=== PATIENT | female | born 1985 | race Caucasian/White ===

== ENCOUNTER 2024-07-23 11:06 | Outpatient (AMB) | payer OTHER, SELFPAY ==
--- NOTE | 2024-07-23 11:09 | MHC.OFFVIS ---
Vital Signs 07/23/24 11:27 Height 5 ft 10 in Weight 169 lb 12.095 oz BMI 24.4 BP 108/65 Blood Pressure Location Lt brachial Position Sitting Pulse 72 Intake Visit Reasons: consult gastric distress Intake Note: Yari presents in the office as a consult for Gastric Distress. CC: She states that many months ago when this appt was first made she was having anxious about food and having severe diarrhea. Issues with cramping in her stomach, mucus in the stool. She states that it has been better for a long time and this was about 8 months ago. Allergies Seasonal Allergies Allergy (Mild, Verified 07/23/24 11:25) unknown HPI HPI consult gastric distress: Details: 39-year-old female here for initial consultation/evaluation of ?gastric distress. ? She is referred by [facility]. PMX Graves disease in remission Migraines Multiple sclerosis Herpes simplex Ovarian cysts Depression with anxiety (on magnesium oxide) Constipation Rosacea PVC's * SURGICAL HISTORY Axillary lymph node biopsy * ALLERGIES : NKDA * [employer] LABS: None in our system TODAY'S VISIT She wants me to wear a mask. In October or September she slowly over time developed loose stools and stomach cramps. She saw her PCP, but it improved with cutting out a lot of food. She had a moving sensation and borborygmus. she had some orange mucus in her stools one time. She admits to being very anxious and was not eating well and she lost a lot of weight. She was becoming afraid of foods. She tried FODMAP, gluten free, no sugar etc.... She did see a psychiatrist. She then became constipated. She admits that she had become quite obsessed with her BM and in any changes. She seems to have a great deal of health anxiety and she herself says ?I was almost crazy with this. ? She is a vegan and always has been. She will have HB that she can make happen with her anxiety. Her menses stopped because she lost so much weight rapidly, going from 180# to about 154#. She noted changes in her nails, etc. She gets summer sickness in that with the heat she gets very ill like I can't breath, : and she has not energy and dizziness. Apparently this is of unclear etiology. This was quite a long appointment as I gently discussed many of her concerns. For 1 thing I explained how the FODMAP diet as close to work in that no one can avoid all of those foods for other and have a healthy diet that they are supposed to add them back in 1 at a time to find out what the real culprits are. She seems to have done this on her own discovering that mostly onions garlic and sometimes chocolate or what most trigger her symptoms. I also discussed the fact that anxiety and the hormonal and normal signals that come from this can vary greatly affect the gut and sometimes cause these symptoms as well. It is also entirely possible she had a passing infection such as norovirus or even food poisoning that is resolving on its own. I suggest that we get a food allergy panel since she does have a history of gluten intolerance and shrimp allergy in her mother. I also think an ultrasound of the gallbladder given the rapid weight loss would be prudent. I am also just getting a general CBC and Chem panel to see if there is any other big concerns. She is agreeable to all of this, which I have made sure of because I do not want to overwhelm her with medical tests. She admits that the more she thinks about a symptom the worse it seems to get. I did reassure her that now that we have established contact I will be here she has a another severe exacerbation. ROV 8 weeks. Review of Systems Const Denies fatigue, Denies fever(s), Denies night sweats, Denies poor appetite and Reports weight loss (About 30 lb) ENT Reports Normal hearing present, Denies dental pain, Denies dysphagia, Denies hearing loss, Denies mouth pain, Denies odynophagia, Denies throat swelling, Denies tongue swelling and Reports other (Dentition adequate) Card Reports no additional complaints Resp Reports no additional complaints GI Details: Denies abdominal pain, Denies melena, Reports bloating, Denies hematochezia, Denies constipation, Denies GI cramping, Denies dysphagia, Denies excessive flatus, Denies early satiety, Reports heartburn, Denies diarrhea, Reports loose stools, Denies nausea, Denies odynophagia, Denies vomiting and Denies hematemesis Skin/Breast Denies pruritus, Denies lesions, Denies rash and Denies jaundice Neuro Reports Normal hearing present and Denies Abnormal speech present Psych Reports anxiety, Reports change in appetite, Denies homicidal ideation and Denies suicidal ideation Endo Denies fatigue Aller/Immun Denies throat swelling and Denies tongue swelling Physical Exam Vital Signs: Last Vital Signs Pulse 72 07/23/24 11:27 BP 108/65 07/23/24 11:27 BMI result Body Mass Index 24.4 Const General: cooperative, no acute distress, well developed and well groomed Nutritional Appearance: well nourished and overweight Orientation/consciousness: oriented to person, oriented to place and oriented to time Limitations: No language barrier HEENT Head: Yes normocephalic and Yes atraumatic Eyes General: appearance normal, both eyes and all related structures Pupils: Equal, round and reactive pupils present Neck Neck: Yes normal visual inspection and Yes no lymphadenopathy Thyroid: Thyroid normal Resp Effort & Inspection: normal respiratory effort and able to speak in complete sentences Auscultation: clear to auscultation bilaterally Cardio Rate: regular rate Rhythm: regular rhythm Heart sounds: Normal, physiologic split S2 sound present Peripheral pulses: radial pulses present and posterior tibial pulses present GI Inspection: No distended and No Abdominal panniculus present Palpation (GI): Soft to palpation, nontender, no guarding, not rigid and No hepatosplenomegaly present Percussion: Yes normal to percussion Auscultation: normal bowel sounds Rectal Exam - Female: deferred Skin General skin exam: no rashes or lesions noted, turgor normal, skin not dry, no jaundice, No spider nevi and no striae Rashes: no rashes Nails: normal Neuro General: oriented to person, oriented to place and oriented to time Cranial nerves: Yes Equal, round and reactive pupils present and Yes Normal hearing present Speech: No Abnormal speech present Extrem General: Yes normal to inspection, No clubbing, No cyanosis and No edema Psych Appearance: grossly normal and well kempt Mental Status: mental status grossly normal Speech and movement: Normal speech and movement present Affect: Anxious affect present Attitude: cooperative Thought process: not confabulating and Perseverating thought process present Thought content: Normal thought content present Insight: Limited insight present (Psych) Judgement: Limited judgement present (Psych) Assessment & Plan Assessment & Plan (1) IBS (irritable bowel syndrome): Code(s): K58.9 - Irritable bowel syndrome, unspecified Category: Medical Plan She wants me to wear a mask. In October or September she slowly over time developed loose stools and stomach cramps. She saw her PCP, but it improved with cutting out a lot of food. She had a moving sensation and borborygmus. she had some orange mucus in her stools one time. She admits to being very anxious and was not eating well and she lost a lot of weight. She was becoming afraid of foods. She tried FODMAP, gluten free, no sugar etc.... She did see a psychiatrist. She then became constipated. She admits that she had become quite obsessed with her BM and in any changes. She seems to have a great deal of health anxiety and she herself says ?I was almost crazy with this. ? She is a vegan and always has been. She will have HB that she can make happen with her anxiety. Her menses stopped because she lost so much weight rapidly, going from 180# to about 154#. She noted changes in her nails, etc. She gets summer sickness in that with the heat she gets very ill like I can't breath, : and she has not energy and dizziness. Apparently this is of unclear etiology. This was quite a long appointment as I gently discussed many of her concerns. For 1 thing I explained how the FODMAP diet as close to work in that no one can avoid all of those foods for other and have a healthy diet that they are supposed to add them back in 1 at a time to find out what the real culprits are. She seems to have done this on her own discovering that mostly onions garlic and sometimes chocolate or what most trigger her symptoms. I also discussed the fact that anxiety and the hormonal and normal signals that come from this can vary greatly affect the gut and sometimes cause these symptoms as well. It is also entirely possible she had a passing infection such as norovirus or even food poisoning that is resolving on its own. I suggest that we get a food allergy panel since she does have a history of gluten intolerance and shrimp allergy in her mother. I also think an ultrasound of the gallbladder given the rapid weight loss would be prudent. I am also just getting a general CBC and Chem panel to see if there is any other big concerns. She is agreeable to all of this, which I have made sure of because I do not want to overwhelm her with medical tests. She admits that the more she thinks about a symptom the worse it seems to get. I did reassure her that now that we have established contact I will be here she has a another severe exacerbation. ROV 8 weeks. Orders: Orders Comprehensive Met. Panel Today K58.9 - Irritable bowel syndrome, unspecified US abdomen complete Today K58.9 - Irritable bowel syndrome, unspecified Complete Blood Count Auto Diff Today K58.9 - Irritable bowel syndrome, unspecified Rast Allergen Today K58.9 - Irritable bowel syndrome, unspecified Coding Level of Care Code New Pt Level 3 (67084) Diagnoses IBS (irritable bowel syndrome) K58.9
[2024-07-23 11:27] VITALS: BP 108/65; PULSE 72; BMI 24.4
--- OUTSIDE RECORDS SUMMARY | 2024-07-23 13:11 | XMS_ITS | Referral Summary ---
Author Organization [facility] Address [address] [place] [address] Care Team Providers Care Language Interpreter Name Role Phone Anastasia Dunham MD Primary Care Provider [phone] Allergies No known active allergies Medications calcium carbonate (TUMS) 200 mg calcium (500 mg) chewable tablet Chew and swallow 1 tablet by mouth. Active nystatin ointment Apply topically to the affected area 2 times daily as needed. 1 Active VITAMIN B COMPLEX ORAL Take 1 tablet by mouth daily. Active cholecalciferol (VITAMIN D3) 1,000 unit tablet Take 5,000 Units by mouth daily. Active mupirocin (BACTROBAN) 2% ointmentIndicat ions:Neoplasm of uncertain behavior Apply to the right 3rd toe daily x 7 days 30 g 1 3 Active ketoconazole (NIZORAL) 2% creamIndication s:Tinea pedis of both feet Apply topically to the affected area(s) between the toes once daily until resolves for up to one year. Please provide one month supply. 60 g 11 3 Active Hospital, Clinic, or Other Facility Administered Medication Ordered Dose Route Frequency Start Date End Date Status lidocaine PF (XYLOCAINE) 1% (10 mg/mL) injection 20 mg 20 mg injection Once 06/04/2022 Active Active Problems Problem Noted Date Diagnosed Date Amenorrhea 07/24/2019 Overview (03/15/2021): Last Assessment & Plan: Has not yet missed 3 months (would be due soon). Reassurance provided that this can be a normal body response to weight loss and times of stress. Encouraged to maintain normal lifestyle, normal eating habits, and avoid excessive worry. Reviewed HPO axis physiology and time to reset. Reviewed when to call back and could consider progesterone challenge. We will check in in a month about this as it is very concerning to her. PVCs (premature ventricular contractions) 2019 Overview (03/15/2021): Pt reported history of PVCs/palpitations Last Assessment & Plan: Has found magnesium helpful with these symptoms in the past. Currently on a lower dose (400mg instead of 500mg) and noticing more palpitations. Reviewed safe max daily dosing of 800 mg PO, typically split BID, potential side effects of excessive magnesium. Dyspepsia 05/25/2019 BAO positive 03/09/2019 Overview (03/15/2021): Last Assessment & Plan: Balance rest and activity. Sleep hygiene. Well-balanced nutritionally diet. Proper hydration. Follow age-appropriate screenings and preventive strategies. Daily sun protection all year round. Joint protection, energy conservation. Avoid falls, injuries, overuse. Topical cream such as Biofreeze, Arnica, Aspercreme 2-3 times daily and if necessary at bedtime to most painful area x 3 weeks. If not better or worse may consider hand therapy. Gastroesophageal reflux disease without esophagi tis 03/09/2019 Overview (03/15/2021): Last Assessment & Plan: Much improved since last visit. Doing well off intensive daily PPI. Mouth sores 03/09/2019 Overview (03/15/2021): Last Assessment & Plan: Take lysine 500 mg twice daily to reduce the frequency. Avoid acidic and spicy food. Proper hydration. Diligent mouth hygiene. Vulvar itching 02/20/2019 Overview (03/15/2021): Last Assessment & Plan: Occasionally has itching after wearing a swimsuit or being in gym clothes. Uses Nystatin ointment with good relief Requesting refill today - Rx sent Graves disease 09/03/2018 Overview (03/15/2021): Dx carri Took symptomatic beta leeroy treatment and then it started to go away on its own Last Assessment & Plan: Due for TSH Pain of right hand 09/03/2018 Raynaud's disease without gangrene 09/03/2018 Overview (03/15/2021): Last Assessment & Plan: Keep warm, dress in layers. Optimize stress management strategies. Avoid vasoconstrictors in OTC products for cold/flu and sinus. Vitamin D insufficiency 09/03/2018 Overview (03/15/2021): Last Assessment & Plan: Although she is taking a high daily dose of Vit D, here levels last year (on this same dose) were wnl. We reviewed risks of excess Vit D- namely hypercalcemia- of which she has no symptoms. Ok to maintain current dose. We will check levels when it is safe to do so or she begins to have symptoms of elevated calcium. These labs have been ordered. Depression with anxiety 05/14/2017 Overview (03/15/2021): Improved with going on work leave April 2017. She has a therapist Last Assessment & Plan: Overall feeling at her baseline now. Continues to see therapist. Coping with the anxieties around Covid-19 as well as can be expected. Multiple sclerosis 05/14/2017 Overview (03/15/2021): Dx by Dr Adams at [facility], . MRIs correlate the lesions. Last Assessment & Plan: Encouraged to think about discussing diagnosis and questions around symptoms that are migraine-related vs MS-related vs auto-immune Social History Tobacco Use Types Packs/Day Years Used Date Smoking Tobacco: Never Assessed Comments Unknown Sex and Gender Information Value Date Recorded Sex Assigned at Female 06/03/2022 5:33 PM EST Legal Sex Female 4:11 PM EDT Gender Identity Female 06/03/2022 5:33 PM EST Sexual Orientation Lesbian or Blanchard 06/03/2022 5: 33 PM EST Last Filed Vital Signs Vital Sign Reading Time Taken Comments Blood Pressure - - Pulse - - Temperature - - Respiratory Rate - - Oxygen Saturation - - Inhaled Oxygen Concentration - - Weight 79.4 kg (175 lb) 06/04/2022 10:17 AM EST Height 179.8 cm (5' 10.8 ) 06/04/2022 10:[address] Body Mass Index 24.55 06/04/2022 10:17 AM EST Plan of Treatment Upcoming Encounters Date Type Department Care Team (Late st Contact Info) Description 01/21/2025 10:30 AM EDT Office Visit [facility] [address] [place] [address] Manager Supply Chain Planning: Kendy Pena, Mandi Macedo MD [address] [place] [address] [phone] Insurance [facility] Care Teams Language Interpreter Relationship Specialty Start Date End Date Anastasia Dunham MD [address] [place] [address] [address] [place] [address] PCP - General Family Medicine 01/03/21
--- OUTSIDE RECORDS SUMMARY | 2024-07-23 13:11 | XMS_ITS | Encounter Summary ---
Author Organization [facility] Address [address] [place] [address] Care Team Providers Care Press Set Up Name Role Phone Anastasia Dunham MD Primary Care Provider [phone] Reason for Visit * Reason Onset Date Comments CS-Urgent appointment 05/25/2022 Pt had an appointment 07/21. PT stated mole is changing, bigger and darker Encounter Details Date Type Department Care Team (Late st Contact Info) Description 05/25/2022 Telephone [facility] Central Scheduling Department [address] [place] [id number] Telephone Intake, Staff CS-Urgent appointment (Pt had an appointment 07/21. PT stated mole is changing, bigger and darker) Social History Tobacco Use Types Packs/Day Years Used Date Smoking Tobacco: Never Assessed Comments Unknown Sex and Gender Information Value Date Recorded Sex Assigned at Female 06/03/2022 5:33 PM EST Legal Sex Female 4:11 PM EDT Gender Identity Female 06/03/2022 5:33 PM EST Sexual Orientation Lesbian or Blanchard 06/03/2022 5: 33 PM EST documented as of this encounter Miscellaneous Notes * Telephone Encounter - Beata Silvestre - 05/28/2022 9:55 AM EST Called and scheduled an appointment with patient * Telephone Encounter - Nisreen Chou - 05/25/2022 1:26 PM EST PT has mole. It is changing. PT getting bigger. DT said Call. Yari [phone] thanks documented in this encounter Plan of Treatment Upcoming Encounters Date Type Department Care Team (Late st Contact Info) Description 01/21/2025 10:30 AM EDT Office Visit [facility] [address] [place] [address] [phone] Veneer Clipper: Mandi Camilo MD [address] [place] [address] [phone] documented as of this encounter Visit Diagnoses Not on filedocumented in this encounter Care Teams Press Set Up Relationship Specialty Start Date End Date Anastasia Dunham MD [address] [place] [phone] PCP - General Family Medicine 01/03/21 documented as of this encounter
--- OUTSIDE RECORDS SUMMARY | 2024-07-23 13:11 | XMS_ITS | Clinical Summary ---
Author Organization [facility] Address [address] [place] [address] Care Team Providers Care Autos Disassembler Name Role Phone Anastasia Dunham MD Primary Care Provider [phone] Allergies No known active allergies Medications calcium [...] Overview (03/15/2021): Dx by Dr Adams at [facility], . MRIs correlate the lesions. Last [...] Description 01/21/2025 10:30 AM EDT Office Visit [facility] [address] [place] [id number] Bed Operator: Kendy Pena, Mandi Macedo MD [address] [place] [phone] Health Maintenance Due Date Last Done Comments Cervical Cancer Screening 1985 HIV Screening 1985 HPV and Pap Smear 1985 Pap Smear 1985 Varicella Vaccines (1 of 2 - 13+ 2-dose series) 1998 Hepatitis B Vaccines (1 of 3 - 19+ 3-dose series) 2004 DTaP,Tdap,and Td Vaccines (1 - Tdap) 12/03/2020 12/02/2020 Alcohol/Substance Use Screening 04/01/2024 Depression Screening and Follow-Up 04/01/2024 Social Drivers of Health Annual Screening 04/01/2024 RSV Vaccine (60+ years old and patients) (1 - 1-dose 75+ series) 2060 Hepatitis C Screening Completed 06/02/2021 COVID-19 Vaccine Completed 01/03/2024, , 12/29/2021, Additional history exists Influenza Vaccine Completed 01/03/2024, , 02/19/2022, Additional history exists Pneumococcal Vaccine: Pediatric (0-5 Years) and At-Risk Patients (6-50 Years) Aged Out No longer eligible based on patient's age to complete this topic Insurance [facility] Care Teams Autos Disassembler Relationship Specialty Start Date End Date Anastasia Dunham MD [address] [place] [address] [address] [place] [id number] PCP - General Family Medicine 01/03/21
== END 2024-07-23 12:21 | disposition home or self-care (01) ==
LOC: HO.HGI 11:07
PROVIDERS: PCP Family Medicine; Visit Provider Nurse Practitioner
DX: K58.9 Irritable bowel syndrome, unspecified (principal)
CPT/HCPCS: 99203

== ENCOUNTER → 2024-07-23 11:06 | Outpatient (BNVA) | payer OTHER, SELFPAY | PROVIDERS: PCP Family Medicine; Visit Provider Nurse Practitioner | DX: K58.9 Irritable bowel syndrome, unspecified (principal); R10.9 Unspecified abdominal pain | CPT/HCPCS: 99202 ==